=== PATIENT | female | born 1960 | race Hispanic/Latino ===

== ENCOUNTER 2019-02-28 15:38 | Emergency (ER) | payer SELFPAY ==
--- NOTE | 2019-02-28 16:17 | RAD REPORT ---
EXAM DESCRIPTION: CT - Head Brain Wo Cont - 02/28/2019 4:11 pm CLINICAL HISTORY: Hypertension, headache COMPARISON: CT head November 2015 TECHNIQUE: Axial 5 mm thick images of the head were obtained without IV contrast. All CT scans are performed using dose optimization technique as appropriate and may include automated exposure control or mA/KV adjustment according to patient size. FINDINGS: No intracranial hemorrhage, mass, edema or shift of mid-line structures. No acute infarcti on changes seen. No abnormal extra-axial fluid collections. Ventricles are normal. Mastoid air cells and visualized portions of the paranasal sinuses are clear. No acute bony findings. No significant change from comparison. IMPRESSION: Negative non-contrast CT head examination.
--- NOTE | 2019-02-28 16:29 | EDPHYS ---
Physician Documentation [facility] Name: Bety Zepeda Age: 58 yrs Sex: Female : 1960 Arrival Date: 02/28/2019 Time: 15:39 Bed 16 Private MD: ED Physician Andrew Parish HPI: 02/28 16:04 This 58 yrs old Female presents to ER via Ambulatory with complaints of Ear snw Pain, High Blood Pressure. 16:04 The patient presents with pain, that is acute. The complaints affect the left ear. snw Onset: The symptoms/episode began/occurred suddenly, just prior to arrival. Modifying factors: The symptoms are alleviated by nothing. Associated signs and symptoms: Pertinent positives: HTN, lightheadedness. Severity of symptoms: At their worst the symptoms were moderate. The patient has experienced similar episodes in the past, a few times, over the past 1-2 weeks. The patient has not recently seen a physician. Pt has not taken HTN medications in years. Historical: - Allergies: 15:46 No Known Allergies; aj - Home Meds: 15:46 None [Active]; aj - PMHx: 15:46 Hypertension; aj - PSHx: 15:46 Cholecystectomy; aj - Immunization history:: Adult Immunizations up to date. - Social history:: Smoking status: Patient uses tobacco products, smokes one-half pack cigarettes per day. - Ebola Screening: : Patient negative for fever greater than or equal to 101.5 degrees Fahrenheit, and additional compatible Ebola Virus Disease symptoms Patient denies exposure to infectious person Patient denies travel to an Ebola-affected area in the 21 days before illness onset No symptoms or risks identified at this time. ROS: 16:03 Constitutional: Negative for fever, chills, and weight loss, Eyes: Negative for injury, snw pain, redness, and discharge, Neck: Negative for injury, pain, and swelling, Cardiovascular: Negative for chest pain, palpitations, and edema, Respiratory: Negative for shortness of breath, cough, wheezing, and pleuritic chest pain, Abdomen/GI: Negative for abdominal pain, nausea, vomiting, diarrhea, and constipation, Back: Negative for injury and pain, : Negative for injury, bleeding, discharge, and swelling, MS/Extremity: Negative for injury and deformity, Skin: Negative for injury, rash, and discoloration. 16:03 ENT: Positive for ear pain, of the left ear. 16:03 Neuro: Positive for dizziness. Exam: 16:03 Constitutional: This is a well developed, well nourished patient who is awake, alert, snw and in no acute distress. Head/Face: Normocephalic, atraumatic. Eyes: Pupils equal round and reactive to light, extra-ocular motions intact. Lids and lashes normal. Conjunctiva and sclera are non-icteric and not injected. Cornea within normal limits. Periorbital areas with no swelling, redness, or edema. ENT: Nares patent. No nasal discharge, no septal abnormalities noted. Tympanic membranes are normal and external auditory canals are clear. Oropharynx with no redness, swelling, or masses, exudates, or evidence of obstruction, uvula midline. Mucous membranes moist. Neck: Trachea midline, no thyromegaly or masses palpated, and no cervical lymphadenopathy. Supple, full range of motion without nuchal rigidity, or vertebral point tenderness. No Meningismus. Chest/axilla: Normal chest wall appearance and motion. Nontender with no deformity. No lesions are appreciated. Cardiovascular: Regular rate and rhythm with a normal S1 and S2. No gallops, murmurs, or rubs. Normal PMI, no JVD. No pulse deficits. Respiratory: Lungs have equal breath sounds bilaterally, clear to auscultation and percussion. No rales, rhonchi or wheezes noted. No increased work of breathing, no retractions or nasal flaring. Abdomen/GI: Soft, non-tender, with normal bowel sounds. No distension or tympany. No guarding or rebound. No evidence of tenderness throughout. Back: No spinal tenderness. No costovertebral tenderness. Full range of motion. Skin: Warm, dry with normal turgor. Normal color with no rashes, no lesions, and no evidence of cellulitis. MS/ Extremity: Pulses equal, no cyanosis. Neurovascular intact. Full, normal range of motion. Neuro: Awake and alert, GCS 15, oriented to person, place, time, and situation. Cranial nerves II-XII grossly intact. Motor strength 5/5 in all extremities. Sensory grossly intact. Cerebellar exam normal. Normal gait. Psych: Awake, alert, with orientation to person, place and time. Behavior, mood, and affect are within normal limits. Vital Signs: 15:46 BP 162 / 100; Pulse 82; Resp 16; Temp 98.2; Pulse Ox 98% on R/A; Weight 76.66 kg; aj Height 5 ft. 0 in. (152.40 cm); 16:49 BP 156 / 102; Pulse 70; Resp 17; Temp 98.5(TE); Pulse Ox 96% on R/A; mh5 17:35 BP 153 / 105; Pulse 67; Resp 17; Temp 98.2(O); Pulse Ox 99% on R/A; Pain 7/10; rb1 15:46 Body Mass Index 33.01 (76.66 kg, 152.40 cm) aj MDM: 16:03 Patient medically screened. snw 16:29 Data reviewed: vital signs, nurses notes. Data interpreted: Pulse oximetry: on room air snw is 98 %. Interpretation: normal. Counseling: I had a detailed discussion with the patient and/or guardian regarding: the historical points, exam findings, and any diagnostic results supporting the discharge/admit diagnosis, the presence of at least one elevated blood pressure reading (>120/80) during this emergency department visit, radiology results, the need for outpatient follow up, to return to the emergency department if symptoms worsen or persist or if there are any questions or concerns that arise at home. Special discussion: Based on the history and exam findings, there is no indication for further emergent testing or inpatient evaluation. I discussed with the patient/guardian the need to see the primary care provider for further evaluation of the symptoms. 02/28 15:58 Order name: CT Head Brain wo Cont; Complete Time: 16:27 snw 02/28 16:00 Order name: FSBS; Complete Time: 16:50 snw Administered Medications: 16:45 Drug: Metoprolol 25 mg {Note: BP 148/102 P 74.} Route: PO; rb1 17:15 Follow up: Response: No adverse reaction rb1 Point of Care Testing: Blood Glucose: 16:47 Blood Glucose: 117 mg/dL; mh5 Ranges: Critical Glucose Levels:Adult <50 mg/dl or >400 mg/dl <40 mg/dl or >180 mg/dl Disposition: 03/01 06:22 Co-signature as Attending Physician, Andrew Parish MD I agree with the assessment and kdr plan of care. Disposition: 02/28/19 16:28 Discharged to Home. Impression: Essential (primary) hypertension, Otalgia, left ear. - Condition is Stable. - Discharge Instructions: Hypertension, Heart Disease Prevention, How to Take Your Blood Pressure, [id number], DASH Eating Plan, Rehydration, Adult, Managing Your Hypertension, Form - Blood Pressure Record Sheet. - Prescriptions for Metoprolol Tartrate 25 mg Oral Tablet - take 1 tablet by ORAL route 2 times per day with a meal; 20 tablet. - Medication Reconciliation Form, Thank You Letter, Antibiotic Education, Prescription Opioid Use form. - Follow up: Emergency Department; When: As needed; Reason: Worsening of condition. Follow up: Private Physician; When: 1 week; Reason: Recheck today's complaints, Continuance of care, Re-evaluation by your physician. Signatures: Dispatcher [employer] EDShelby Chance RN RN Andrew Cordoba MD MD kdr Therrien, Shelly, COLOR BUFFER-C COLOR BUFFER-Csnw Rosetta Lowery, RN RN rb1 Corrections: (The following items were deleted from the chart) 02/28 17:44 16:28 02/28/2019 16:28 Discharged to Home. Impression: Essential (primary) rb1 hypertension; Otalgia, left ear. Condition is Stable. Forms are Medication Reconciliation Form, Thank You Letter, Antibiotic Education, Prescription Opioid Use. Follow up: Emergency Department; When: As needed; Reason: Worsening of condition. Follow up: Private Physician; When: 1 week; Reason: Recheck today's complaints, Continuance of care, Re-evaluation by your physician. snw
--- NOTE | 2019-02-28 16:29 | ER ---
Nurse's Notes [facility] Name: Bety Zepeda Age: 58 yrs Sex: Female : 1960 Arrival Date: 02/28/2019 Time: 15:39 Bed 16 Private MD: Diagnosis: Essential (primary) hypertension;Otalgia, left ear Presentation: 02/28 15:44 Presenting complaint: Patient states: High blood pressure, headache, blurry vision, and aj left ear pain intermittently for 3-4 days. Patient reportedly stopped her HTN medications due to recall but did not contact provider for new RX. Transition of care: patient was not received from another setting of care. Onset of symptoms was February 24, 2019. Risk Assessment: Do you want to hurt yourself or someone else? Patient reports no desire to harm self or others. Initial Sepsis Screen: Does the patient meet any 2 criteria? No. Patient's initial sepsis screen is negative. Does the patient have a suspected source of infection? No. Patient's initial sepsis screen is negative. Care prior to arrival: None. 15:44 Method Of Arrival: Ambulatory 15:44 Acuity: BALWINDER 3 aj Triage Assessment: 15:46 General: Appears in no apparent distress. comfortable, Behavior is calm, cooperative, aj appropriate for age. Pain: Complains of pain in scalp and left ear. EENT: Reports pain in left ear. Neuro: Level of Consciousness is awake, alert, obeys commands, Oriented to person, place, time, situation, Appropriate for age Reports headache. Respiratory: Airway is patent Trachea midline Respiratory effort is even, unlabored, Respiratory pattern is regular, symmetrical. Derm: Skin is intact, is healthy with good turgor, Skin is pink, warm \T\ dry. normal. Historical: - Allergies: 15:46 No Known Allergies; aj - Home Meds: 15:46 None [Active]; aj - PMHx: 15:46 Hypertension; aj - PSHx: 15:46 Cholecystectomy; aj - Immunization history:: Adult Immunizations up to date. - Social history:: Smoking status: Patient uses tobacco products, smokes one-half pack cigarettes per day. - Ebola Screening: : Patient negative for fever greater than or equal to 101.5 degrees Fahrenheit, and additional compatible Ebola Virus Disease symptoms Patient denies exposure to infectious person Patient denies travel to an Ebola-affected area in the 21 days before illness onset No symptoms or risks identified at this time. Screenin:00 Abuse screen: Denies threats or abuse. Nutritional screening: No deficits noted. rb1 Tuberculosis screening: No symptoms or risk factors identified. Fall Risk None identified. Assessment: 16:00 General: Appears uncomfortable, Behavior is calm, cooperative, Denies fever. Pain: rb1 Complains of pain in left ear and left side of head Pain currently is 9 out of 10 on a pain scale. Neuro: Level of Consciousness is awake, alert, obeys commands, Oriented to person, place, time, situation, Reports blurred vision. Cardiovascular: Capillary refill < 3 seconds is brisk in bilateral fingers. Respiratory: Airway is patent Respiratory effort is even, unlabored, Respiratory pattern is regular, symmetrical. GI: Reports nausea. : No signs and/or symptoms were reported regarding the genitourinary system. EENT: Reports pain in left ear. Derm: Skin is pink, warm \T\ dry. Musculoskeletal: Range of motion: intact in all extremities. 16:00 General: Pt. was on Hydrochlorothiazide 25 mg but has stopped taking that medication. rb1 16:01 General: Appears in no apparent distress. uncomfortable. ae4 16:37 Reassessment: Discharge is pending until directed by provider to discharge the pt. rb1 17:35 Reassessment: Patient appears in no apparent distress at this time. No changes from rb1 previously documented assessment. Vital Signs: 15:46 BP 162 / 100; Pulse 82; Resp 16; Temp 98.2; Pulse Ox 98% on R/A; Weight 76.66 kg; aj Height 5 ft. 0 in. (152.40 cm); 16:49 BP 156 / 102; Pulse 70; Resp 17; Temp 98.5(TE); Pulse Ox 96% on R/A; mh5 17:35 BP 153 / 105; Pulse 67; Resp 17; Temp 98.2(O); Pulse Ox 99% on R/A; Pain 7/10; rb1 15:46 Body Mass Index 33.01 (76.66 kg, 152.40 cm) aj ED Course: 15:39 Patient arrived in ED. as 15:45 Triage completed. aj 15:46 Arm band placed on left wrist. Patient placed in an exam room. aj 15:49 Min, Kymberly, PHYSIOLOGY TEACHER-C is [facility]. sn 15:49 Andrew Parish MD is Attending Physician. [facility] 15:56 Rosetta Lowery, RN is Primary Nurse. rb1 16:00 Patient has correct armband on for positive identification. Bed in low position. Call rb1 light in reach. Side rails up X 1. Pulse ox on. NIBP on. 16:13 CT Head Brain wo Cont In Process Unspecified. EDMS 17:42 No provider procedures requiring assistance completed. Patient did not have IV access rb1 during this emergency room visit. Administered Medications: 16:45 Drug: Metoprolol 25 mg {Note: BP 148/102 P 74.} Route: PO; rb1 17:15 Follow up: Response: No adverse reaction rb1 Point of Care Testing: Blood Glucose: 16:47 Blood Glucose: 117 mg/dL; mh5 Ranges: Outcome: 16:28 Discharge ordered by MD. snw 17:42 Discharged to home ambulatory, with family. rb1 17:42 Condition: stable 17:42 Discharge instructions given to patient, Instructed on discharge instructions, follow up and referral plans. medication usage, Demonstrated understanding of instructions, follow-up care, medications, Prescriptions given X 1. 17:42 Patient left the ED. rb1 Signatures: Dispatcher [employer] Shelby Chacon RN RN Kymberly Torres FNP-C PHYSIOLOGY TEACHER-[facility] Heaven Jurado as Rosetta Lowery, RN RN [facility] Karla Jurado [facility] Bobo Elkins RN RN ae4 Corrections: (The following items were deleted from the chart) 17:45 17:44 Patient left the ED. rb1 rb1
[2019-02-28] MEDS ORDERED: METOPROLOL TAR 25 MG TAB ONE (16:59)
[2019-02-28 17:58] VITALS: BP 153/105; TEMP 98.2; O2SAT 99
== END 2019-02-28 17:44 | disposition home or self-care (01) ==
LOC: ER 15:38
DX: H92.02 Otalgia, left ear (principal); I10 Essential (primary) hypertension; F17.210 Nicotine dependence, cigarettes, uncomplicated
CPT/HCPCS: 70450; 82962; 99284

== ENCOUNTER 2019-08-28 13:31 | Emergency (ER) | payer SELFPAY ==
[2019-08-28 14:19] LABS: Urine Blood NEGATIVE (NEG); Urine Glucose NEGATIVE (NEG); Urine Protein NEGATIVE (NEG)
[2019-08-28 14:44] LABS: Absolute Lymphocytes (CBC) 1.6 K/uL (0.7-4.9); Basophils % 0.4 % (0-1.3); Hematocrit 38.4 % (36.0-45.0); Lymphocytes % 26.9 % (15.3-44.8); MPV 8.2 fL (7.6-11.3); RBC Red Blood Cell Count 4.39 M/uL (3.86-4.86)
[2019-08-28 14:47] LABS: Protime INR 0.98
[2019-08-28 15:01] LABS: ALT/SGPT 25 U/L (12-78); AST/SGOT 22 U/L (15-37); Albumin 3.8 g/dL (3.4-5.0); Alkaline Phosphatase 117 U/L (45-117); BUN Blood Urea Nitrogen 12 mg/dL (7-18); Bicarbonate 28 mmol/L (21-32); Bilirubin Direct 0.2 mg/dL (0-0.2); Bilirubin Total 0.4 mg/dL (0.2-1.0); Glucose Level 91 mg/dL (74-106); Magnesium 2.1 mg/dL (1.8-2.4); NT PRO-BNP 142 pg/mL (<125); Potassium 3.9 mmol/L (3.5-5.1); Protein, Total 7.6 g/dL (6.4-8.2); Sodium Level 139 mmol/L (136-145); Troponin (Emerg Dept Use Only) < 0.02 ng/mL (0.0-0.045)
--- NOTE | 2019-08-28 15:09 | RAD REPORT ---
EXAM DESCRIPTION: Andrew Single View08/28/2019 2:56 pm CLINICAL HISTORY: Chest pain COMPARISON: 2016 FINDINGS: The lungs appear clear of acute infiltrate. The heart is mildly to moderately enlarged. T he aorta is tortuous/ectatic IMPRESSION: No acute abnormalities displayed
--- NOTE | 2019-08-28 15:16 | RAD REPORT ---
EXAM DESCRIPTION: CT - Head Brain Wo Cont - 08/28/2019 3:02 pm CLINICAL HISTORY: Headache COMPARISON: February 2019 TECHNIQUE: Computed axial tomography of the head was obtained. IV contrast was not requested. All CT scans are performed using dose optimization technique as appropriate and may include automated exposure control or mA/KV adjustment according to patient size. FINDINGS: An intracranial bleed is not seen . The ventricles are normal in caliber. No extra-axial fluid collection is noted. . Fluid within the sinuses/ mastoids is not seen. IMPRESSION: No acute intracranial abnormality is seen. If patient's symptoms persist MRI of the bra in would be recommended.
[2019-08-28] MEDS ORDERED: HYDRALAZINE HCL 20 MG/ML VIAL ONE (15:47)
[2019-08-28] MEDS ORDERED: KETOROLAC 30 MG/ML INJ ONE (15:48)
[2019-08-28] MEDS ORDERED: ACETAMINOPHEN 325 MG TABLET ONE (17:08)
--- NOTE | 2019-08-28 18:43 | ER ---
Nurse's Notes [facility] Name: Bety Zepeda Age: 58 yrs Sex: Female : 1960 Arrival Date: 08/28/2019 Time: 13:33 Bed 27 Private MD: Diagnosis: Hypertension secondary to other renal disorders;Headache Presentation: 08/28 13:49 Presenting complaint: Patient states: headache, chest pain and near syncopal episode ss that began while at work 1 hour ago. Pt's BP was taken at work 183/117 and 157/105. Pt states she was told in the ER that she had high blood pressure, but never followed up with PCP. Transition of care: patient was not received from another setting of care. Onset of symptoms was August 28, 2019. Risk Assessment: Do you want to hurt yourself or someone else? Patient reports no desire to harm self or others. Initial Sepsis Screen: Does the patient meet any 2 criteria? No. Patient's initial sepsis screen is negative. Does the patient have a suspected source of infection? No. Patient's initial sepsis screen is negative. Care prior to arrival: see triage note. 13:49 Method Of Arrival: Ambulatory ss 13:49 Acuity: BALWINDER 2 ss Triage Assessment: 13:58 General: Appears in no apparent distress. ls4 13:58 Pain: Complains of pain in top of head, forehead, right yarsanism, left yarsanism and right ls4 occipital area Pain currently is 9 out of 10 on a pain scale. Quality of pain is described as aching, pressure. Cardiovascular: Reports chest pain, fatigue, lightheadedness, nausea, Denies shortness of breath, syncope, vomiting, Heart tones S1 S2 Pulses are 2+ in right radial artery and left radial artery Rhythm is sinus arrythmia. Respiratory: Airway is patent Respiratory effort is even, unlabored, Respiratory pattern is regular, Breath sounds are clear bilaterally. GI: No deficits noted. : No deficits noted. Musculoskeletal: No deficits noted. 14:38 General: Behavior is calm, cooperative. ls4 Historical: - Allergies: 13:52 No Known Allergies; ss - Home Meds: 13:52 None [Active]; ss - PMHx: 13:52 Hypertension; ss - PSHx: 13:52 Cholecystectomy; ss - Immunization history:: Adult Immunizations up to date. - Social history:: Smoking status: Patient reports the use of cigarette tobacco products, denies chronic smoking, but will smoke occasionally. - Ebola Screening: : Patient denies exposure to infectious person Patient denies travel to an Ebola-affected area in the 21 days before illness onset. Screenin:36 Abuse screen: Denies threats or abuse. Denies injuries from another. Nutritional ls4 screening: No deficits noted. Tuberculosis screening: No symptoms or risk factors identified. Fall Risk None identified. Assessment: 16:25 Reassessment: Patient appears in no apparent distress at this time. Patient and/or ls4 family updated on plan of care and expected duration. Pain level reassessed. Patient is alert, oriented x 3, equal unlabored respirations, skin warm/dry/pink. Patient states symptoms have improved. 16:45 Pain: Complains of pain in right occipital area and left yarsanism and right yarsanism and ls4 forehead and top of head Pain does not radiate. Quality of pain is described as aching, sharp, Pain began suddenly, 4 hours ago. 19:34 General: Appears in no apparent distress. comfortable, Behavior is calm, cooperative, ca1 appropriate for age. Pain: Denies pain. Neuro: Level of Consciousness is awake, alert, obeys commands. Cardiovascular: Denies chest pain. Respiratory: Airway is patent. GI: Abdomen is round non-distended. : No signs and/or symptoms were reported regarding the genitourinary system. Derm: Skin is intact, is healthy with good turgor. Vital Signs: 13:52 BP 156 / 116; Pulse 87; Resp 16; Temp 98.3(O); Pulse Ox 98% on R/A; Weight 74.84 kg; ss Height 5 ft. 0 in. (152.40 cm); Pain 9/10; 14:39 BP 149 / 102; Pulse 80; Resp 22; Temp 98.3; Pulse Ox 97% on R/A; Pain 9/10; ls4 15:30 BP 140 / 92; Pulse 92; Resp 14; Pulse Ox 99% ; Pain 9/10; ls4 16:30 BP 137 / 95; Pulse 85; Resp 16; Pulse Ox 99% on R/A; Pain 8/10; ls4 18:05 BP 138 / 97; Pulse 82; Resp 14; Temp 98.5; Pulse Ox 100% on R/A; Pain 3/10; ls4 19:15 BP 130 / 70; Pulse 88; Resp 18; Temp 98; Pulse Ox 98% ; Pain 0/10; ca1 13:52 Body Mass Index 32.22 (74.84 kg, 152.40 cm) ED Course: 13:33 Patient arrived in ED. ds1 13:51 Triage completed. ss 13:52 Arm band placed on left wrist. ss 13:56 Jason Bell MD is Attending Physician. tw4 14:00 Patient has correct armband on for positive identification. Placed in gown. Bed in low ls4 position. Call light in reach. Side rails up X2. quality assurance monitor on. Pulse ox on. NIBP on. 14:10 EKG completed in triage. Results shown to MD. ls4 14:10 No provider procedures requiring assistance completed. Initial lab(s) drawn, by me, ls4 sent to lab. Urine collected: clean catch specimen, clear, EKG done, by ED staff, reviewed by Jason Bell MD. Inserted saline lock: 20 gauge in right antecubital area, using aseptic technique. Blood collected. Patient maintains SpO2 saturation greater than 95% on room air. 14:18 Alena Maldonado, RN is Primary Nurse. ls4 14:56 XRAY Chest (1 view) In Process Unspecified. EDMS 15:03 CT Head Brain wo Cont In Process Unspecified. EDMS 19:34 IV discontinued, intact, bleeding controlled, No redness/swelling at site. Pressure ca1 dressing applied. Administered Medications: 15:52 Drug: TORadol 30 mg Route: IVP; Site: right antecubital; ls4 16:20 Follow up: Response: No adverse reaction; No change in condition ls4 16:25 Follow up: Response: No adverse reaction; Marked relief of symptoms; Pain is decreased ls4 15:52 Drug: hydrALAZINE 10 mg Route: IV; Rate: bolus; Site: right antecubital; ls4 16:20 Follow up: Response: No adverse reaction; Blood pressure is lowered ls4 17:15 Drug: Tylenol 1000 mg Route: PO; ls4 18:04 Follow up: Response: No adverse reaction; Pain is decreased ls4 Outcome: 18:42 Discharge ordered by . tw4 19:33 Discharged to home ambulatory. ca1 19:33 Condition: good 19:33 Discharge instructions given to patient, family, Instructed on discharge instructions, follow up and referral plans. medication usage, Demonstrated understanding of instructions, follow-up care, medications. 19:36 Patient left the ED. ca1 Signatures: Dispatcher [employer] EDAR Heather Spear ds1 Ayah Camargo RN RN Jason Amador MD MD tw4 Alena Maldonado RN RN ls4 Winsome Florence RN RN ca1 Corrections: (The following items were deleted from the chart) 18:53 18:05 BP 138 / 97; Pulse 82bpm; Resp 14bpm; Pulse Ox 100% RA; Pain 3/10; ls4 ls4
--- NOTE | 2019-08-28 18:43 | EDPHYS ---
Physician Documentation [facility] Name: Bety Zepeda Age: 58 yrs Sex: Female : 1960 Arrival Date: 08/28/2019 Time: 13:33 Bed 27 Private MD: ED Physician Jason Bell HPI: 08/28 17:17 This 58 yrs old Female presents to ER via Ambulatory with complaints of Chest tw4 Pain, High Blood Pressure. 17:17 The patient has elevated blood pressure and discovered this during work physical. tw4 Onset: The symptoms/episode began/occurred today. Modifying factors: The symptoms are aggravated by. Associated signs and symptoms: Pertinent positives: chest pain, headache, lightheadedness, nausea. Severity of symptoms: At its worst the blood pressure was moderate. The patient has not experienced similar symptoms in the past. Historical: - Allergies: 13:52 No Known Allergies; ss - Home Meds: 13:52 None [Active]; ss - PMHx: 13:52 Hypertension; ss - PSHx: 13:52 Cholecystectomy; ss - Immunization history:: Adult Immunizations up to date. - Social history:: Smoking status: Patient reports the use of cigarette tobacco products, denies chronic smoking, but will smoke occasionally. - Ebola Screening: : Patient denies exposure to infectious person Patient denies travel to an Ebola-affected area in the 21 days before illness onset. ROS: 17:17 Constitutional: Negative for fever, chills, and weight loss, Eyes: Negative for injury, tw4 pain, redness, and discharge, Cardiovascular: Negative for chest pain, palpitations, and edema, Respiratory: Negative for shortness of breath, cough, wheezing, and pleuritic chest pain, Abdomen/GI: Negative for abdominal pain, nausea, vomiting, diarrhea, and constipation, Back: Negative for injury and pain, MS/Extremity: Negative for injury and deformity, Skin: Negative for injury, rash, and discoloration. Exam: 17:17 Constitutional: This is a well developed, well nourished patient who is awake, alert, tw4 and in no acute distress. Head/Face: Normocephalic, atraumatic. Chest/axilla: Normal chest wall appearance and motion. Nontender with no deformity. No lesions are appreciated. Cardiovascular: Regular rate and rhythm with a normal S1 and S2. No gallops, murmurs, or rubs. Normal PMI, no JVD. No pulse deficits. Respiratory: Lungs have equal breath sounds bilaterally, clear to auscultation and percussion. No rales, rhonchi or wheezes noted. No increased work of breathing, no retractions or nasal flaring. Abdomen/GI: Soft, non-tender, with normal bowel sounds. No distension or tympany. No guarding or rebound. No evidence of tenderness throughout. Back: No spinal tenderness. No costovertebral tenderness. Full range of motion. MS/ Extremity: Pulses equal, no cyanosis. Neurovascular intact. Full, normal range of motion. Neuro: Awake and alert, GCS 15, oriented to person, place, time, and situation. Cranial nerves II-XII grossly intact. Motor strength 5/5 in all extremities. Sensory grossly intact. Cerebellar exam normal. Normal gait. Vital Signs: 13:52 BP 156 / 116; Pulse 87; Resp 16; Temp 98.3(O); Pulse Ox 98% on R/A; Weight 74.84 kg; ss Height 5 ft. 0 in. (152.40 cm); Pain 9/10; 14:39 BP 149 / 102; Pulse 80; Resp 22; Temp 98.3; Pulse Ox 97% on R/A; Pain 9/10; ls4 15:30 BP 140 / 92; Pulse 92; Resp 14; Pulse Ox 99% ; Pain 9/10; ls4 16:30 BP 137 / 95; Pulse 85; Resp 16; Pulse Ox 99% on R/A; Pain 8/10; ls4 18:05 BP 138 / 97; Pulse 82; Resp 14; Temp 98.5; Pulse Ox 100% on R/A; Pain 3/10; ls4 19:15 BP 130 / 70; Pulse 88; Resp 18; Temp 98; Pulse Ox 98% ; Pain 0/10; ca1 13:52 Body Mass Index 32.22 (74.84 kg, 152.40 cm) ss MDM: 13:56 Patient medically screened. tw4 18:46 Differential diagnosis: hypertensive crisis, Malignant HTN. Data reviewed: vital signs, tw4 nurses notes. Data interpreted: Pulse oximetry: Interpretation: normal. Test interpretation: by ED physician or midlevel provider: ECG, plain radiologic studies. Counseling: I had a detailed discussion with the patient and/or guardian regarding: the historical points, exam findings, and any diagnostic results supporting the discharge/admit diagnosis, lab results, radiology results. Medication response: Toradol partially relieved the patient's pain. Response to treatment: and as a result, I will discharge patient. Special discussion: Based on the patient's history, exam, and Dx evaluation, there is no indication for emergent intervention or inpatient Tx. It is understood by the patient/guardian that if the Sx's persist or worsen they need to return immediately for re-evaluation. I discussed with the patient/guardian in detail that at this point there is no indication for admission to the hospital. It is understood, however, that if the symptoms persist or worsen the patient needs to return immediately for re-evaluation. 08/28 13:56 Order name: Basic Metabolic Panel; Complete Time: 15:26 08/28 15:26 Interpretation: Normal except: GFR 89. 08/28 13:56 Order name: CBC with Diff; Complete Time: 15:26 08/28 15:26 Interpretation: Normal except: MCV 87.6. 08/28 13:56 Order name: LFT's; Complete Time: 15:26 08/28 15:26 Interpretation: Normal except: GLOB 3.8; A/G 1.0. 08/28 13:56 Order name: Magnesium; Complete Time: 15:26 08/28 15:26 Interpretation: Within normal limits: MG 2.1. 08/28 13:56 Order name: NT PRO-BNP; Complete Time: 15:26 08/28 15:26 Interpretation: Abnormal: NT PRO-BNP 142. 08/28 13:56 Order name: PT-INR; Complete Time: 15:26 08/28 15:26 Interpretation: Within normal limits: PT 11.6. 08/28 13:56 Order name: Troponin (emerg Dept Use Only); Complete Time: 15:26 08/28 15:26 Interpretation: Within normal limits: TROPED < 0.02. 08/28 13:56 Order name: XRAY Chest (1 view); Complete Time: 15:26 08/28 15:26 Interpretation: No acute disease. 08/28 14:07 Order name: Urine Dipstick--Ancillary (enter results); Complete Time: 15:26 08/28 14:43 Order name: CT Head Brain wo Cont; Complete Time: 15:26 [facility] 08/28 15:27 Interpretation: No acute disease. 08/28 18:15 Order name: Influenza Screen (a \T\ B) [facility] 08/28 13:56 Order name: EKG; Complete Time: 13:58 08/28 13:56 Order name: Cardiac monitoring; Complete Time: 14:17 08/28 13:56 Order name: EKG - Nurse/Tech; Complete Time: 14:17 08/28 13:56 Order name: IV Saline Lock; Complete Time: 14:34 08/28 13:56 Order name: Labs collected and sent; Complete Time: 14:34 08/28 13:56 Order name: O2 Per Protocol; Complete Time: 14:17 08/28 13:56 Order name: O2 Sat Monitoring; Complete Time: 14:17 tw4 EC:46 Rate is 81 beats/min. Rhythm is regular. QRS [place] is Normal. [place] interval is normal. QRS tw4 interval is normal. QT interval is normal. No Q waves. T waves are Normal. No ST changes noted. Clinical impression: NSR w/ Non-specific ST/T Changes. Interpreted by me. Reviewed by me. Administered Medications: 15:52 Drug: TORadol 30 mg Route: IVP; Site: right antecubital; ls4 16:20 Follow up: Response: No adverse reaction; No change in condition ls4 16:25 Follow up: Response: No adverse reaction; Marked relief of symptoms; Pain is decreased ls4 15:52 Drug: hydrALAZINE 10 mg Route: IV; Rate: bolus; Site: right antecubital; ls4 16:20 Follow up: Response: No adverse reaction; Blood pressure is lowered ls4 17:15 Drug: Tylenol 1000 mg Route: PO; ls4 18:04 Follow up: Response: No adverse reaction; Pain is decreased ls4 Disposition: 08/28/19 18:42 Discharged to Home. Impression: Hypertension secondary to other renal disorders, Headache. - Condition is Stable. - Discharge Instructions: General Headache Without Cause, Migraine Headache, Dental Work and . - Prescriptions for Fiorinal 50- 325-40 mg Oral Capsule - take 1 capsule by ORAL route every 4 hours As needed - not to exceed 6 capsules per day; 20 capsule. Ibuprofen 800 mg Oral Tablet - take 1 tablet by ORAL route every 8 hours As needed take with food; 30 tablet. Zofran 4 mg Oral Tablet - take 1 tablet by ORAL route every 12 hours As needed; 6 tablet. - Medication Reconciliation Form, Thank You Letter, Antibiotic Education, Prescription Opioid Use, Work release form form. - Follow up: Private Physician; When: Upon discharge from the Emergency Department; Reason: Recheck today's complaints, Continuance of care, Re-evaluation by your physician. - Problem is new. - Symptoms have improved. Signatures: Dispatcher [employer] EDLA Ayah Camargo, RN RN Jason Amador MD MD tw4 Alena Maldonado RN RN ls4 Winsome Florence RN RN ca1 Corrections: (The following items were deleted from the chart) 19:36 18:42 08/28/2019 18:42 Discharged to Home. Impression: Hypertension secondary to other ca1 renal disorders; Headache. Condition is Stable. Forms are Medication Reconciliation Form, Thank You Letter, Antibiotic Education, Prescription Opioid Use. Follow up: Private Physician; When: Upon discharge from the Emergency Department; Reason: Recheck today's complaints, Continuance of care, Re-evaluation by your physician. Problem is new. Symptoms have improved. tw4
[2019-08-28 23:28] VITALS: BP 130/70; TEMP 98; O2SAT 98
--- NOTE | 2019-08-29 11:26 | EKG ---
Test Date: 2019-08-28 Test Time: 14:10:32 Orthotic And Prosthetic Technician: JANELLE MEASUREMENT RESULTS: Intervals: Rate: 81 DC: 168 QRSD: 90 QT: 378 QTc: 439 [place]: P: DC: 168 QRS: 201 T: 190 INTERPRETIVE STATEMENTS: Normal sinus rhythm Right superior axis deviation ST & T wave abnormality, consider inferior ischemia Abnormal ECG Compared to ECG 11/11/2015 00:05:53 Right superior axis now present ST (T wave) deviation now present Possible ischemia now present Left ventricular hypertrophy no longer present Electronically Signed On 08-29-19 11:24:00 BOMB TECHNICIAN by Syed Mas
== END 2019-08-28 19:36 | disposition home or self-care (01) ==
LOC: ER 13:31
DX: I10 Essential (primary) hypertension (principal); R51 Headache; Z72.0 Tobacco use
CPT/HCPCS: 36415; 70450; 71045; 80048; 80076; 81003; 83735; 83880; 84484; 85025; 85610; 87804; 93005; 96374; 96375; 99285; J0360

== ENCOUNTER 2020-04-30 14:16 | Emergency (ER) | payer SELFPAY ==
--- NOTE | 2020-04-30 16:05 | ER ---
Nurse's Notes [facility] Name: Bety Zepeda Age: 59 yrs Sex: Female : 1960 Arrival Date: 04/30/2020 Time: 14:20 Bed Waiting Private MD: Diagnosis: Presentation: 04/30 14:25 Chief complaint: Patient states: right knee pain that radiates up and down knee for 2 em months, denies trauma. Coronavirus screen: Client denies travel out of the [place] in the last 14 days. Ebola Screen: Patient negative for fever greater than or equal to 101.5 degrees Fahrenheit, and additional compatible Ebola Virus Disease symptoms Patient denies exposure to infectious person. Patient denies travel to an Ebola-affected area in the 21 days before illness onset. No symptoms or risks identified at this time. Initial Sepsis Screen: Does the patient meet any 2 criteria? No. Patient's initial sepsis screen is negative. Does the patient have a suspected source of infection? No. Patient's initial sepsis screen is negative. Risk Assessment: Do you want to hurt yourself or someone else? Patient reports no desire to harm self or others. Onset of symptoms was February 2020. 14:25 Method Of Arrival: Ambulatory em 14:25 Acuity: BALWINDER 4 em Historical: - Allergies: 14:28 No Known Allergies; em - PMHx: 14:28 Hypertension; em - PSHx: 14:28 Cholecystectomy; em - Immunization history:: Adult Immunizations up to date. - Social history:: Smoking status: Patient reports the use of cigarette tobacco products, denies chronic smoking, but will smoke occasionally. Vital Signs: 14:25 BP 155 / 101; Pulse 80; Resp 18; Temp 98.5; Pulse Ox 98% on R/A; Weight 71.67 kg; em Height 5 ft. 0 in. (152.40 cm); Pain 6/10; 14:25 Body Mass Index 30.86 (71.67 kg, 152.40 cm) em ED Course: 14:20 Patient arrived in ED. mr 14:27 Triage completed. em 14:28 Arm band placed on. em 15:48 Trudy Mckeon FNP-C [facility]. kb 15:48 William Barnes MD is Attending Physician. kb 15:54 Patient's name was called from XI ibarra. No response. hb Administered Medications: No medications were administered Outcome: 16:04 Patient left the ED. hb Signatures: Trudy Mckeon FNP-C FNP-Brittany RichaChe Phil Lai, RN RN em Danica Khan RN RN hb Corrections: (The following items were deleted from the chart) 14:55 14:25 BP 155 / 101; Pulse 80bpm; Resp 97bpm; Pulse Ox 98% RA; Temp 98.5F; 71.67 kg; em Height 5 ft. 0 in.; BMI: 30.8; Pain 6/10; em
[2020-04-30 16:26] VITALS: BP 155/101; TEMP 98.5; O2SAT 98
== END 2020-04-30 16:04 | disposition left against medical advice (07) ==
LOC: ER 14:16
DX: Z53.21 Procedure and treatment not carried out due to patient leaving prior to being seen by health care provider (principal)
CPT/HCPCS: 99281

== ENCOUNTER 2020-10-20 09:25 | Emergency (ER) | payer SELFPAY ==
--- OUTSIDE RECORDS SUMMARY | 2020-10-20 09:28 | XMS REPORT | Continuity of Care Document ---
:1960 Author Organization [facility] t Address [address] [place] [address] Care Team Providers Name Role Phone Kate Amaro Attending Clinician Problems This patient has no known problems. Allergies, Adverse Reactions, Alerts This patient has no known allergies or adverse reactions. Medications This patient has no known medications. Procedures This patient has no known procedures. Encounters Start End Encounter Admission Attending Care Care Encounter Source Date/Time Date/Time Type Type Clinicians Facility Department ID 2020-05-01 2020-05-01 Emergency Efraín Morris [facility] [id number] 11:25:00 12:46:00 Kate Winslow [id number] [place] [id number] [place] [id number] Results This patient has no known results.
--- NOTE | 2020-10-20 11:17 | EDPHYS ---
Physician Documentation [facility] Name: Bety Zepeda Age: 60 yrs Sex: Female : 1960 Arrival Date: 10/20/2020 Time: 09:29 Bed 23 Private MD: ED Physician Juan Manuel Flores HPI: 10/20 11:08 This 60 yrs old Female presents to ER via Unassigned with complaints of Hand alivia Pain. 11:08 The patient or guardian reports decreased range of motion, pain. The complaints affect ailvia the right hand diffusely. Context: The problem was sustained at an unknown location. Onset: The symptoms/episode began/occurred 1 week(s) ago. Modifying factors: The symptoms are alleviated by holding still, splinting, the symptoms are aggravated by movement, dependent position. Associated signs and symptoms: The patient has no apparent associated signs or symptoms. Severity of symptoms: At their worst the symptoms were moderate, in the emergency department the symptoms are unchanged. The patient has not experienced similar symptoms in the past. - Family history:: not pertinent. ROS: 11:08 Constitutional: Negative for fever, chills, and weight loss, Eyes: Negative for injury, alivia pain, redness, and discharge, ENT: Negative for injury, pain, and discharge, Neck: Negative for injury, pain, and swelling, Cardiovascular: Negative for chest pain, palpitations, and edema, Respiratory: Negative for shortness of breath, cough, wheezing, and pleuritic chest pain, Abdomen/GI: Negative for abdominal pain, nausea, vomiting, diarrhea, and constipation, Back: Negative for injury and pain, : Negative for injury, bleeding, discharge, and swelling, Skin: Negative for injury, rash, and discoloration, Neuro: Negative for headache, weakness, numbness, tingling, and seizure, Psych: Negative for depression, anxiety, suicide ideation, homicidal ideation, and hallucinations, Allergy/Immunology: Negative for hives, rash, and allergies, Endocrine: Negative for neck swelling, polydipsia, polyuria, polyphagia, and marked weight changes, Hematologic/Lymphatic: Negative for swollen nodes, abnormal bleeding, and unusual bruising. 11:08 MS/extremity: Positive for decreased range of motion, pain, tenderness, of the lateral aspect of right hand, right thumb, dorsal aspect of distal phalanx of right thumb, dorsal aspect of distal phalanx of right index finger, dorsal aspect of middle phalanx of right index finger, dorsal aspect of proximal phalanx of right index finger, dorsal aspect of middle phalanx of right middle finger, dorsal aspect of proximal phalanx of right middle finger, dorsal aspect of middle phalanx of right ring finger, dorsal aspect of proximal phalanx of right ring finger, right middle fingernail and right ring fingernail. Exam: 11:08 Constitutional: This is a well developed, well nourished patient who is awake, alert, alivia and in no acute distress. Head/Face: Normocephalic, atraumatic. Eyes: Pupils equal round and reactive to light, extra-ocular motions intact. Lids and lashes normal. Conjunctiva and sclera are non-icteric and not injected. Cornea within normal limits. Periorbital areas with no swelling, redness, or edema. ENT: Nares patent. No nasal discharge, no septal abnormalities noted. Tympanic membranes are normal and external auditory canals are clear. Oropharynx with no redness, swelling, or masses, exudates, or evidence of obstruction, uvula midline. Mucous membranes moist. Neck: Trachea midline, no thyromegaly or masses palpated, and no cervical lymphadenopathy. Supple, full range of motion without nuchal rigidity, or vertebral point tenderness. No Meningismus. Chest/axilla: Normal chest wall appearance and motion. Nontender with no deformity. No lesions are appreciated. Cardiovascular: Regular rate and rhythm with a normal S1 and S2. No gallops, murmurs, or rubs. Normal PMI, no JVD. No pulse deficits. Respiratory: Lungs have equal breath sounds bilaterally, clear to auscultation and percussion. No rales, rhonchi or wheezes noted. No increased work of breathing, no retractions or nasal flaring. Abdomen/GI: Soft, non-tender, with normal bowel sounds. No distension or tympany. No guarding or rebound. No evidence of tenderness throughout. Back: No spinal tenderness. No costovertebral tenderness. Full range of motion. Skin: Warm, dry with normal turgor. Normal color with no rashes, no lesions, and no evidence of cellulitis. Neuro: Awake and alert, GCS 15, oriented to person, place, time, and situation. Cranial nerves II-XII grossly intact. Motor strength 5/5 in all extremities. Sensory grossly intact. Cerebellar exam normal. Normal gait. Psych: Awake, alert, with orientation to person, place and time. Behavior, mood, and affect are within normal limits. 11:08 Musculoskeletal/extremity: Extremities: grossly normal except: noted in the lateral aspect of right hand, right thumb, dorsal aspect of distal phalanx of right thumb, dorsal aspect of proximal phalanx of right thumb, dorsal aspect of distal phalanx of right index finger, dorsal aspect of middle phalanx of right index finger, dorsal aspect of proximal phalanx of right index finger, dorsal aspect of middle phalanx of right middle finger, dorsal aspect of proximal phalanx of right middle finger, dorsal aspect of middle phalanx of right ring finger, dorsal aspect of proximal phalanx of right ring finger, palmar aspect of distal phalanx of right ring finger, palmar aspect of middle phalanx of right ring finger, palmar aspect of proximal phalanx of right ring finger, palmar aspect of distal phalanx of right middle finger, palmar aspect of middle phalanx of right middle finger, palmar aspect of proximal phalanx of right middle finger, palmar aspect of distal phalanx of right index finger, palmar aspect of middle phalanx of right index finger, palmar aspect of proxima; phalanx of right index finger, palmar aspect of distal phalanx of right thumb, palmar aspect of proximal phalanx of right thumb, right middle fingernail and right ring fingernail: decreased ROM, pain, ROM: limited active range of motion due to pain, limited passive range of motion due to pain, Circulation is intact in all extremities. Sensation intact. Compartment Syndrome exam of affected extremity: is normal. 11:19 ECG was reviewed by the Attending Physician. alivia MDM: 10:05 Patient medically screened. alivia 11:08 Differential diagnosis: closed fracture, tendonitis. Data reviewed: vital signs, nurses alivia notes, EKG, radiologic studies, plain films. Data interpreted: load out person: rate is 90 beats/min, Pulse oximetry: on room air is 96 %. Test interpretation: by ED physician or midlevel provider: ECG, plain radiologic studies. Counseling: I had a detailed discussion with the patient and/or guardian regarding: the historical points, exam findings, and any diagnostic results supporting the discharge/admit diagnosis, radiology results. 10/20 11:00 Order name: Hand Right 3 View [facility] 10/20 10:25 Order name: EKG; Complete Time: 10:26 [facility] 10/20 10:25 Order name: EKG - Nurse/Tech; Complete Time: 11:09 [facility] 10/20 10:59 Order name: Splint - Wrist: velcro/cock up; Complete Time: 11:27 alivia EC:19 Rate is 90 beats/min. Rhythm is regular. QRS [place] is Normal. [place] interval is normal. QRS alivia interval is normal. QT interval is normal. No Q waves. T waves are Normal. No ST changes noted. Clinical impression: NSR w/ Non-specific ST/T Changes, LVH, and No evidence of ischemia. Interpreted by me. Reviewed by me. Administered Medications: 11:13 Drug: [place] (7.5 mg-325 mg) 1 tabs Route: PO; dm5 11:13 Drug: predniSONE 40 mg Route: PO; dm5 Disposition: 10/20/20 11:17 Discharged to Home. Impression: Carpal tunnel syndrome, right upper limb. - Condition is Stable. - Discharge Instructions: Carpal Tunnel Syndrome, Wrist Splint, Wrist Splint, [id number], Peripheral Neuropathy. - Prescriptions for Ibuprofen 600 mg Oral Tablet - take 1 tablet by ORAL route every 6 hours As needed take with food; 20 tablet. Tylenol- Codeine #3 300-30 mg Oral Tablet - take 2 tablets by ORAL route every 4-6 hours As needed; 20 tablet. Medrol (Adalberto) 4 mg Oral Tablets, Dose Pack - take 1 tablet by ORAL route as directed - follow package instructions; 1 packet. - Work release form, Medication Reconciliation Form, Thank You Letter, Antibiotic Education, Prescription Opioid Use form. - Follow up: Private Physician; When: 2 - 3 days; Reason: Recheck today's complaints, Continuance of care, Re-evaluation by your physician. Follow up: Dimas James MD; When: 2 - 3 days; Reason: Recheck today's complaints, Continuance of care, Re-evaluation by your physician. - Problem is new. - Symptoms have improved. Signatures: Dispatcher [facility] Julia Tang, RN RN dm5 Juan Manuel Flores MD MD cha Corrections: (The following items were deleted from the chart) 11:00 10:26 Hand Left 3 View+RAD.RAD.BRZ ordered. [facility] EDMS 11:34 11:17 10/20/2020 11:17 Discharged to Home. Impression: Carpal tunnel syndrome, right dm5 upper limb. Condition is Stable. Forms are Medication Reconciliation Form, Thank You Letter, Antibiotic Education, Prescription Opioid Use. Follow up: Private Physician; When: 2 - 3 days; Reason: Recheck today's complaints, Continuance of care, Re-evaluation by your physician. Follow up: Dimas James; When: 2 - 3 days; Reason: Recheck today's complaints, Continuance of care, Re-evaluation by your physician. Problem is new. Symptoms have improved. alivia
--- NOTE | 2020-10-20 11:17 | ER ---
Nurse's Notes [facility] Name: Bety Zepeda Age: 60 yrs Sex: Female : 1960 Arrival Date: 10/20/2020 Time: 09:29 Bed 23 Private MD: Diagnosis: Carpal tunnel syndrome, right upper limb Presentation: 10/20 09:31 Acuity: BALWINDER 4 dm5 - Family history:: not pertinent. ED Course: 09:29 Patient arrived in ED. mr 09:31 Triage completed. dm5 10:05 Juan Manuel Flores MD is Attending Physician. [facility] 10:41 Julia Tang, RN is Primary Nurse. dm5 11:11 Hand Right 3 View In Process Unspecified. EDMS 11:16 EKG done, by ED staff, reviewed by Juan Manuel Flores MD. 5 11:16 Patient has correct armband on for positive identification. Placed in gown. Bed in low mh5 position. Call light in reach. Side rails up X 1. Warm blanket given. Pulse ox on. NIBP on. 11:17 Dimas James MD is Referral Physician. [facility] Administered Medications: 11:13 Drug: [place] (7.5 mg-325 mg) 1 tabs Route: PO; dm5 11:13 Drug: predniSONE 40 mg Route: PO; dm5 Outcome: 11:17 Discharge ordered by . [facility] 11:34 Patient left the ED. dm5 Signatures: Dispatcher [employer] EDMS Julia Tang, Juan Manuel Meza RN, MD MD cha Rivera, Che Karla Jurado [facility]
--- NOTE | 2020-10-20 11:18 | RAD REPORT ---
EXAM DESCRIPTION: RAD - Hand Right 3 View - 10/20/2020 11:10 am CLINICAL HISTORY: PAIN, no trauma history or precipitating event detailed COMPARISON: No comparisonsNone. FINDINGS: No fracture is identified. There is no dislocation or periosteal reaction noted. No forei gn body or significant soft tissue abnormality. Mild IP joint degenerative change. Mild degenerative change at the trapezial first metacarpal articulation. IMPRESSION: Negative right hand examination for fracture or other acute finding.
[2020-10-20] MEDS ORDERED: HYDROCODONE/APAP 7.5/325 MG TAB ONE (11:28)
[2020-10-20] MEDS ORDERED: predniSONE 20 MG TAB ONE (11:28)
== END 2020-10-20 11:34 | disposition home or self-care (01) ==
LOC: ER 09:25
DX: G56.01 Carpal tunnel syndrome, right upper limb (principal)
CPT/HCPCS: 93005; 99284; J7512

== ENCOUNTER 2020-11-01 05:31 | Emergency (ER) | payer SELFPAY ==
--- OUTSIDE RECORDS SUMMARY | 2020-11-01 05:34 | XMS REPORT | Continuity of Care Document ---
:1960 Author Organization [facility] t Address [address] [place] [address] Care Team Providers Name Role Phone Kate [...] Department ID 2020-05-01 2020-05-01 Emergency Efraín Morris [facility] [id number] 11:25:00 12:46:00 Kate Winslow [id number] [place] [id number] [place] [id number] Results This patient has no known results.
[2020-11-01] MEDS ORDERED: DIPHENHYDRAMINE 50 MG/ML VIAL ONE (06:29)
[2020-11-01] MEDS ORDERED: METOCLOPRAMIDE 10 MG/2mL INJ ONE (06:29)
[2020-11-01] MEDS ORDERED: KETOROLAC 30 MG/ML INJ ONE (06:29)
[2020-11-01] MEDS ORDERED: NA CHLORIDE 0.9% 1,000 ML ONE (06:29)
[2020-11-01 06:49] LABS: ALT/SGPT 30 U/L (12-78); AST/SGOT 14 U/L (15-37); Albumin 3.5 g/dL (3.4-5.0); Alkaline Phosphatase 92 U/L (45-117); BUN Blood Urea Nitrogen 17 mg/dL (7-18); Bicarbonate 29 mmol/L (21-32); Bilirubin Total 0.7 mg/dL (0.2-1.0); Glucose Level 114 mg/dL (74-106); Potassium 3.8 mmol/L (3.5-5.1); Protein, Total 7.1 g/dL (6.4-8.2); Sodium Level 139 mmol/L (136-145)
[2020-11-01 06:53] LABS: Basophils % 0.5 % (0-1.3); Hematocrit 35.9 % (36.0-45.0); Lymphocytes % 35.5 % (15.3-44.8); MPV 8.2 fL (7.6-11.3)
--- NOTE | 2020-11-01 08:30 | RAD REPORT ---
EXAM DESCRIPTION: RAD - Chest Single View - 11/01/2020 6:49 am CLINICAL HISTORY: CHEST PAIN Chest pain. COMPARISON: Chest Single View dated 08/28/2019; Chest Single View dated 11/10/2015; CHEST SINGLE VIEW d ated 10/10/2015; CHEST SINGLE VIEW dated 10/25/2013 FINDINGS: Portable technique limits examination quality. The lungs are grossly clear. The heart is mildly enlarged in size. No displaced fractures. IMPRESSION: No acute intrathoracic process suspected.
--- NOTE | 2020-11-01 09:29 | EDPHYS ---
Physician Documentation [facility] Name: Bety Zepeda Age: 60 yrs Sex: Female : 1960 Arrival Date: 11/01/2020 Time: 05:34 Bed 7 Private MD: ED Physician Andrew Parish HPI: 11/01 06:36 This 60 yrs old Female presents to ER via Ambulatory with complaints of ma2 Headache. 06:36 The patient complains of pain to the forehead. Onset: The symptoms/episode ma2 began/occurred gradually, 2 day(s) ago. Severity of symptoms: At its worst the pain was moderate, in the emergency department the pain is unchanged. The patient has not experienced similar symptoms in the past. Historical: - Allergies: 05:54 No Known Allergies; bb - Home Meds: 05:54 Ibuprofen Oral [Active]; acetaminophen-codeine 300-30 mg Oral tab 1 tab every 6 hours bb [Active]; medrol dose pack [Active]; - PMHx: 05:54 Hypertension; bb - PSHx: 05:54 None; bb - Immunization history:: Adult Immunizations up to date. - Social history:: Smoking status: Patient/guardian denies using tobacco, Stopped _ months ago 1.5 Patient/guardian denies using alcohol, street drugs, Patient/guardian denies using IV drugs, The patient lives with family. - Family history:: not pertinent. ROS: 06:36 Constitutional: Negative for fever, chills, and weight loss. ma2 06:36 All other systems are negative. Exam: 06:36 Constitutional: This is a well developed, well nourished patient who is awake, alert, ma2 and in no acute distress. Head/Face: Normocephalic, atraumatic. Eyes: Pupils equal round and reactive to light, extra-ocular motions intact. Lids and lashes normal. Conjunctiva and sclera are non-icteric and not injected. Cornea within normal limits. Periorbital areas with no swelling, redness, or edema. ENT: Nares patent. No nasal discharge, no septal abnormalities noted. Tympanic membranes are normal and external auditory canals are clear. Oropharynx with no redness, swelling, or masses, exudates, or evidence of obstruction, uvula midline. Mucous membranes moist. Neck: Trachea midline, no thyromegaly or masses palpated, and no cervical lymphadenopathy. Supple, full range of motion without nuchal rigidity, or vertebral point tenderness. No Meningismus. Chest/axilla: Normal chest wall appearance and motion. Nontender with no deformity. No lesions are appreciated. Cardiovascular: Regular rate and rhythm with a normal S1 and S2. No gallops, murmurs, or rubs. Normal PMI, no JVD. No pulse deficits. Respiratory: Lungs have equal breath sounds bilaterally, clear to auscultation and percussion. No rales, rhonchi or wheezes noted. No increased work of breathing, no retractions or nasal flaring. Abdomen/GI: Soft, non-tender, with normal bowel sounds. No distension or tympany. No guarding or rebound. No evidence of tenderness throughout. MS/ Extremity: Pulses equal, no cyanosis. Neurovascular intact. Full, normal range of motion. Neuro: Awake and alert, GCS 15, oriented to person, place, time, and situation. Cranial nerves II-XII grossly intact. Motor strength 5/5 in all extremities. Sensory grossly intact. Cerebellar exam normal. Normal gait. Vital Signs: 05:47 BP 163 / 109; Pulse 72; Resp 18 S; Temp 98.6(O); Pulse Ox 95% on R/A; Weight 72.57 kg bb (R); Height 5 ft. 0 in. (152.40 cm) (R); Pain 7/10; 07:29 BP 171 / 99; Pulse 60; Resp 17; Pulse Ox 97% on R/A; tw2 08:51 BP 141 / 100; Pulse 60; Resp 17; Pulse Ox 96% on R/A; tw2 05:47 Body Mass Index 31.25 (72.57 kg, 152.40 cm) bb [place] Coma Score: 06:36 Eye Response: spontaneous(4). Verbal Response: oriented(5). Motor Response: obeys ma2 commands(6). Total: 15. MDM: 05:50 Patient medically screened. ma2 06:36 Differential diagnosis: cluster headache, sinusitis, tension headache, vasomotor ma2 headache. 17:58 Data reviewed: vital signs, nurses notes, lab test result(s), EKG, radiologic studies. kdr Counseling: I had a detailed discussion with the patient and/or guardian regarding: the historical points, exam findings, and any diagnostic results supporting the discharge/admit diagnosis, lab results, radiology results, the need for outpatient follow up. 11/01 06:08 Order name: CBC with Diff; Complete Time: 07:01 [facility] 11/01 06:08 Order name: CMP; Complete Time: 07:01 [facility] 11/01 06:25 Order name: Troponin (emerg Dept Use Only) [facility] 11/01 06:26 Order name: Troponin (Emerg Dept Use Only); Complete Time: 07:17 EDMS 11/01 06:39 Order name: COVID-19 : Document "Date of Symptom Onset" if Symptomatic. [facility] 11/01 06:25 Order name: Chest Single View XRAY; Complete Time: 08:42 [facility] 11/01 06:25 Order name: CT Head Brain wo Cont ma2 Administered Medications: 06:27 Drug: NS 0.9% 1000 ml Route: IV; Rate: 1 bolus; Site: right antecubital; ea 08:50 Follow up: Response: No adverse reaction; IV Status: Completed infusion; IV Intake: tw2 1000ml 06:27 Drug: Reglan 20 mg Route: IVP; Site: right antecubital; ea 08:50 Follow up: Response: No adverse reaction tw2 06:27 Drug: TORadol 30 mg Route: IVP; Site: right antecubital; ea 08:50 Follow up: Response: No adverse reaction; Pain is decreased tw2 06:27 Drug: Benadryl 25 mg Route: IVP; Site: right antecubital; ea 08:50 Follow up: Response: No adverse reaction tw2 Disposition: 11/01/20 09:28 Discharged to Home. Impression: Headache, Hypertensive heart disease, Dyspnea. - Condition is Stable. - Discharge Instructions: Hypertension, [id number], General Headache Without Cause, Migraine Headache, [id number]. - Prescriptions for Lisinopril 20 mg Oral Tablet - take 1 tablet by ORAL route once daily; 20 tablet. Albuterol Sulfate 90 mcg/actuation - inhale 1-2 puff by INHALATION route every 4-6 hours; 1 Inhaler. Pepcid 20 mg Oral Tablet - take 1 tablet by ORAL route once daily; 20 tablet. - Medication Reconciliation Form, Thank You Letter, Work release form form. - Follow up: Private Physician; When: Tomorrow; Reason: If symptoms return. - Notes: SEE YOUR PCP FOR MANAGEMENT OF HYPERTENSION Signatures: Dispatcher [employer] EDAndrew Poon MD MD kdr Patricia Koehler RN RN bb Nikky Meehan RN RN tw2 Nelia Hilario RN RN ea Doreen Cates MD MD ma2 Corrections: (The following items were deleted from the chart) 09:43 09:28 11/01/2020 09:28 Discharged to Home. Impression: Headache; Hypertensive heart tw2 disease; Dyspnea. Condition is Stable. Discharge Instructions: General Headache Without Cause, Hypertension, Migraine Headache, [id number]. Prescriptions for Reglan 10 mg Oral Tablet - take 1 tablet by ORAL route every 6 hours . take 30 minutes before meals and at bedtime; 100 tablet, Diclofenac Sodium 75 mg Oral Tablet Sustained Release - take 1 tablet by ORAL route 2 times per day; 30 tablet. and Forms are Work release form, Medication Reconciliation Form, Thank You Letter, Antibiotic Education, Prescription Opioid Use. Follow up: Private Physician; When: Tomorrow; Reason: If symptoms return. kdr
--- NOTE | 2020-11-01 09:29 | ER ---
Nurse's Notes [facility] Name: Bety Zepeda Age: 60 yrs Sex: Female : 1960 Arrival Date: 11/01/2020 Time: 05:34 Bed 7 Private MD: Diagnosis: Headache;Hypertensive heart disease;Dyspnea Presentation: 11/01 05:47 Chief complaint: Patient states: she has had a headache with SOB and nausea since bb yesterday the headache is intermittent but feels like "a shooter". Coronavirus screen: Client reports previous positive COVID test result. 4 to 5 months ago. Ebola Screen: No symptoms or risks identified at this time. Initial Sepsis Screen: Does the patient meet any 2 criteria? No. Patient's initial sepsis screen is negative. Does the patient have a suspected source of infection? No. Patient's initial sepsis screen is negative. Risk Assessment: Do you want to hurt yourself or someone else? Patient reports no desire to harm self or others. Onset of symptoms was October 31, 2020. 05:47 Method Of Arrival: Ambulatory 05:47 Acuity: BALWINDER 3 bb Historical: - Allergies: 05:54 No Known Allergies; bb - Home Meds: 05:54 Ibuprofen Oral [Active]; acetaminophen-codeine 300-30 mg Oral tab 1 tab every 6 hours bb [Active]; medrol dose pack [Active]; - PMHx: 05:54 Hypertension; bb - PSHx: 05:54 None; bb - Immunization history:: Adult Immunizations up to date. - Social history:: Smoking status: Patient/guardian denies using tobacco, Stopped _ months ago 1.5 Patient/guardian denies using alcohol, street drugs, Patient/guardian denies using IV drugs, The patient lives with family. - Family history:: not pertinent. Screenin:38 Abuse screen: Denies threats or abuse. Nutritional screening: No deficits noted. ea Tuberculosis screening: No symptoms or risk factors identified. Fall Risk None identified. Assessment: 06:28 General: Appears uncomfortable, Behavior is calm, cooperative, appropriate for age. ea Pain: Complains of pain in face. Neuro: Level of Consciousness is awake, alert, obeys commands, Oriented to person, place, time, situation. Cardiovascular: Patient's skin is warm and dry. Respiratory: Airway is patent Respiratory effort is even, unlabored, Respiratory pattern is regular, symmetrical. Derm: Skin is pink, warm \\T\\ dry. 07:04 Reassessment: Patient and/or family updated on plan of care and expected duration. Pain ea level reassessed. Patient is alert, oriented x 3, equal unlabored respirations, skin warm/dry/pink. Returned from CT. 08:51 Reassessment: Patient appears in no apparent distress at this time. Patient and/or tw2 family updated on plan of care and expected duration. Pain level reassessed. Patient is alert, oriented x 3, equal unlabored respirations, skin warm/dry/pink. Patient states feeling better. Patient states symptoms have improved. 09:41 Reassessment: Patient appears in no apparent distress at this time. Patient and/or tw2 family updated on plan of care and expected duration. Pain level reassessed. Patient is alert, oriented x 3, equal unlabored respirations, skin warm/dry/pink. 09:42 Reassessment: Patient states feeling better. tw2 Vital Signs: 05:47 BP 163 / 109; Pulse 72; Resp 18 S; Temp 98.6(O); Pulse Ox 95% on R/A; Weight 72.57 kg bb (R); Height 5 ft. 0 in. (152.40 cm) (R); Pain 7/10; 07:29 BP 171 / 99; Pulse 60; Resp 17; Pulse Ox 97% on R/A; tw2 08:51 BP 141 / 100; Pulse 60; Resp 17; Pulse Ox 96% on R/A; tw2 05:47 Body Mass Index 31.25 (72.57 kg, 152.40 cm) [place] Coma Score: 06:36 Eye Response: spontaneous(4). Verbal Response: oriented(5). Motor Response: obeys ma2 commands(6). Total: 15. ED Course: 05:34 Patient arrived in ED. ag3 05:38 Nelia Hilario, FORREST is Primary Nurse. ea 05:50 Doreen Cates MD is Attending Physician. ma2 05:51 Triage completed. bb 05:54 Arm band placed on Patient placed in an exam room, on a stretcher, on pulse oximetry. bb 06:28 Patient has correct armband on for positive identification. Bed in low position. Call ea light in reach. Side rails up X2. 06:28 Inserted saline lock: 20 gauge in right antecubital area, using aseptic technique. ea Blood collected. 06:49 Chest Single View XRAY In Process Unspecified. EDMS 06:51 CT Head Brain wo Cont In Process Unspecified. EDMS 07:13 Primary Nurse role handed off by Nelia Hilario RN tw2 07:13 Nikky Meehan RN is Primary Nurse. tw2 07:17 Attending Physician role handed off by Doreen Cates MD [facility] 07:17 Andrew Parish MD is Attending Physician. kdr 09:42 No provider procedures requiring assistance completed. IV discontinued, intact, tw2 bleeding controlled, No redness/swelling at site. Pressure dressing applied. Administered Medications: 06:27 Drug: NS 0.9% 1000 ml Route: IV; Rate: 1 bolus; Site: right antecubital; ea 08:50 Follow up: Response: No adverse reaction; IV Status: Completed infusion; IV Intake: tw2 1000ml 06:27 Drug: Reglan 20 mg Route: IVP; Site: right antecubital; ea 08:50 Follow up: Response: No adverse reaction tw2 06:27 Drug: TORadol 30 mg Route: IVP; Site: right antecubital; ea 08:50 Follow up: Response: No adverse reaction; Pain is decreased tw2 06:27 Drug: Benadryl 25 mg Route: IVP; Site: right antecubital; ea 08:50 Follow up: Response: No adverse reaction tw2 Intake: 08:50 IV: 1000ml; Total: 1000ml. tw2 Outcome: 09:28 Discharge ordered by . kdr 09:42 Discharged to home ambulatory. tw2 09:42 Condition: stable 09:42 Discharge instructions given to patient, Instructed on discharge instructions, follow up and referral plans. no drinking with medication, no driving heavy equipment, medication usage, Demonstrated understanding of instructions, follow-up care, medications, Prescriptions given X 3. 09:43 Patient left the ED. tw2 Signatures: Dispatcher [employer] EDMS Andrew Parish MD MD kdr Ballard, Brenda, RN RN bb Wise, Tara, RN RN tw2 Nelia Hilario RN RN ea Alzahri, Mohammad, MD MD ma2 Chasity Burdick ag3
[2020-11-01 10:00] VITALS: TEMP 98.6
[2020-11-01 10:01] VITALS: BP 141/100; O2SAT 96
--- NOTE | 2020-11-01 22:33 | RAD REPORT ---
EXAM DESCRIPTION: CT Head Without Intravenous Contrast CLINICAL HISTORY: The patient is 60 years old and is Female; HEADACHE TECHNIQUE: Axial computed tomography images of the head/brain without intravenous contrast. Sagitt al and coronal reformatted images were created and reviewed. This CT exam was performed using one o r more of the following dose reduction techniques: automated exposure control, adjustment of the mA and/or kV according to patient size, and/or use of iterative reconstruction technique. COMPARISON: CT head 08/28/2019. FINDINGS: Brain: Mild nonspecific white matter changes likely related to chronic microvascular isc hemic disease. No hemorrhage. Ventricles: Unremarkable. No ventriculomegaly. Bones/joints: Unremarkable. No acute fracture. Soft tissues: Unremarkable. Sinuses: Unremarkable as visualized. Mastoid air cells: Unremarkable as visualized. No mastoid effusion. IMPRESSION: No acute findings in the head/brain. Electronically signed by: Brady Martinez MD 11/01/2020 6:59 AM CDT Due to temporary technical issues with the PACS/Fluency reporting system, reports are being signed by the in house radiologists without review as a courtesy to insure prompt reporting. The interpreting radiologist is fully responsible for the content of the report.
== END 2020-11-01 09:43 | disposition home or self-care (01) ==
LOC: ER 05:31
DX: R51.9 Headache, unspecified (principal); I11.9 Hypertensive heart disease without heart failure; Z87.891 Personal history of nicotine dependence; R06.00 Dyspnea, unspecified; Z20.822 Contact with and (suspected) exposure to COVID-19
CPT/HCPCS: 36415; 70450; 71045; 80053; 84484; 85025; 96361; 96374; 96375; 99284; J1200; J2765; J7030

== ENCOUNTER 2022-09-01 10:50 | Emergency (ER) | payer SELFPAY ==
--- OUTSIDE RECORDS SUMMARY | 2022-09-01 10:52 | XMS REPORT | Continuity of Care Document ---
:1960 Author Organization [facility] t Address [address] [place] [address] Care Team Providers Name Role Phone Efraín Amaro Attending Clinician Problems Condition Condition Condition Status Onset Resolution Last Treating Co mments Source Name Details Category Date Date Treatment Clinician Date Contracept Contracept Disease Active U nivers lucho lucho 4-22 [facility] [place] management [place] [facility] Tubal Tubal Disease Active Univers ligation ligation 10-05 ity of status status 00:00: [address] Intramural Intramural Disease Active Overview : Univers leiomyoma leiomyoma 10-05 Diagnosed i ty of of uterus of uterus 00:00: at ER. [facility] s 00 Records [facility] Branch Essential Essential Disease Active Uni vers hypertensi hypertensi 10-05 it y of on, benign [place], benign [place]: [place] [facility] [place] Tobacco Tobacco Disease Active Univers use use 10-05 ity of disorder disorder 00:00: [address] Heavy Heavy Disease Active Univers menses menses 10-05 ity of 00:00: [address] Allergies, Adverse Reactions, Alerts Allergy Allergy Status Severity Reaction(s) Onset Inactive Treating Comm ents Source Name Type Date Date Clinician NO KNOWN Drug Active Univers ALLERGIE Class ity of [facility] Social History Social Habit Start Date Stop Date Quantity Comments Source Sex Assigned At [facility] y of [facility] Exposure to Yes University of SARS-CoV-2 [place] [facility] (event) Branch Tobacco use and 2015-11-29 2015-11-29 Never used Universit y of exposure 00:00:00 00:00:00 [facility] Alcohol intake 2015-11-29 2015-11-29 Current University of 00:00:00 00:00:00 non-drinker of [facility] alcohol (finding) Branch History of 2014-11-23 Cigarette Smoker [facility] of tobacco use 00:00:00 [facility] Tobacco Comment 2014-10-04 2014-10-04 smokes 3 x per Unive rsity of 00:00:00 00:00:[address] [facility] Smoking Status Start Date Stop Date Source Former smoker 2015-11-29 00:00:00 2015-11-29 00:00:00 [facility] Medications Ordered Filled Start Stop Current Ordering Indication Dosage Frequency Signature Comments Components Source Medication Medication Date Date Medication? Clinician (SIG) Name Name ibuprofen 2020 No 600mg 600 mg, Uni vers (IBU) 05-01 Oral, ity of tablet 600 17:30: 17:39 ONCE, 1 Stefano as mg 00 :00 dose, Wed Medical 05/01/20 at Branch 1230, [place] naproxen Yes [id number] 500mg Take 1 Univers (NAPROSYN) 05-01 9100 tablet by ity of 500 mg 00:00: mouth 2 [place] tablet 00 (two) Medical times Branch daily with meals. hydrochloro Yes [id number] 25mg Take 1 Univers thiazide 4-22 tablet by ity of (ESIDRIX) 00:00: mouth [place] 25 mg 00 daily. Medical tablet Branch Immunizations Ordered Filled Immunization Date Status Comments Sourc e Immunization Name Name TDAP 2014-10-04 Completed University of 00:00:00 [facility] Vital Signs Vital Name Observation Time Observation Value Comments Source Systolic blood 2020-05-01 16:21:00 169 mm[Hg] Univer sity of pressure [facility] Diastolic blood 2020-05-01 16:21:00 117 mm[Hg] Unive rsity of pressure [facility] Heart rate 2020-05-01 16:21:00 90 /min [facility] Body temperature 2020-05-01 16:21:[address] [facility] rate 2020-05-01 16:21:00 16 /min [facility] ersity of [facility] Body weight 2020-05-01 16:21:00 71.668 kg Universi [facility] BMI 2020-05-01 16:21:00 31.64 kg/m2 Universi [facility] Oxygen saturation in 2020-05-01 16:21:00 96 /min University of Arterial blood by [facility] Pulse oximetry Branch Systolic blood 2020-05-01 16:21:00 169 mm[Hg] Univer sity of pressure [facility] Diastolic blood 2020-05-01 16:21:00 117 mm[Hg] Unive rsity of pressure [facility] Heart rate 2020-05-01 16:21:00 90 /min [facility] Body temperature 2020-05-01 16:21:[address] [facility] Respiratory rate 2020-05-01 16:21:00 16 /min [facility] Body weight 2020-05-01 16:21:00 71.668 kg Universi [facility] BMI 2020-05-01 16:21:00 31.64 kg/m2 Universi [facility] Oxygen saturation in 2020-05-01 16:21:00 96 /min University of Arterial blood by [facility] Pulse oximetry Branch Procedures Procedure Date / Time Performed Performing Clinician Sourc e XR KNEE <3 VW RIGHT 2020-05-01 16:59:18 Efraín Morris [facility] CONSENT/REFUSAL FOR 2020-05-01 16:08:08 Doctor Unassigned, No Un [facility] DIAGNOSIS AND Name [facility] TREATMENT Encounters Start End Encounter Admission Attending Care Care Encounter Source Date/Time Date/Time Type Type Clinicians Facility Department ID 2020-05-01 2020-05-01 Emergency Efraín Morris [facility] [id number] 11:25:00 12:46:00 Kate Winslow [id number] [place] [id number] [place] [id number] 2020-05-01 2020-05-01 Emergency Efraín Morris [facility] [id number] [facility] 11:25:00 12:46:00 Kate Winslow [id number] i ty of [place] [id number] [facility] [id number] [facility] 084 Branch 2020-05-01 2020-05-01 Emergency X [facility] ERT [id number] [facility] 11:08:00 11:08:[address] [facility] Results Test Description Test Time Test Results Result Source Comments Comments XR KNEE <3 VW 2020-04-10 HISTORY: ?Pain. Univer sity of RIGHT 3 FINDINGS: AP, lateral, [place] [facility] 17:08:03 oblique views of right Br anch knee showed no acute fractureor dislocation. Minimal joint effusion noted associated with mildtricompartment degenerative arthritis, slightly more affecting medial kneejoint space with slightly narrowed medial knee joint space, osteophytesalong the articular edges of all the bones. CONCLUSIONS: Mild tricompartment degenerative osteoarthritis of right knee. [facility], [facility]iant Results Inft User - 05/01/2020 12:09 PM CDTHISTORY: Pain.FINDINGS: AP, lateral, oblique views of right knee showed no acute fractureor dislocation. Minimal joint effusion noted associated with mildtricompartment degenerative arthritis, slightly more affecting medial kneejoint space with slightly narrowed medial knee joint space, osteophytesalong the articular edges of all the bones.CONCLUSIONS: Mild tricompartment degenerative osteoarthritis of right knee.
[2022-09-01 11:34] LABS: Absolute Lymphocytes (CBC) 1.6 K/uL (0.7-4.9); Hematocrit 37.5 % (36.0-45.0); Lymphocytes % 28.5 % (15.3-44.8); MCV 85.7 fL (80-100); MPV 7.9 fL (7.6-11.3); RBC Red Blood Cell Count 4.38 M/uL (3.86-4.86)
[2022-09-01] MEDS ORDERED: ASPIRIN 81 MG CHEWABLE TABLET ONE (11:44)
[2022-09-01 11:52] LABS: Potassium 3.7 mmol/L (3.5-5.1); Troponin High Sensitivity 6.7 pg/mL (<58.9)
--- NOTE | 2022-09-01 13:44 | RAD REPORT ---
EXAM DESCRIPTION: CT - Chest For Pe Angio - 09/01/2022 1:12 pm CLINICAL HISTORY: Chest pain COMPARISON: None. TECHNIQUE: Dynamically enhanced axial 3 mm thick images of the chest were obtained during administra tion of <100> mL Isovue 370 IV contrast. Coronal and oblique reconstruction images were generated and reviewed. Exam utilizes a protocol for optimal evaluation of pulmonary arterial tree. Maximum intensity projections 3D imaging was utilized All CT scans are performed using dose optimization technique as appropriate and may include automated exposure control or mA/KV adjustment according to patient size. FINDINGS: A pulmonary embolus is not seen. Ascending thoracic aorta 4.2 centimeters. Intimal flap lower descending thoracic aorta A pleural effusion is not seen. A pericardial effusion is not seen. Moderate cardiomegaly A lung consolidation is not present. IMPRESSION: Negative for a pulmonary embolism. Intimal flap lower descending thoracic aorta
--- NOTE | 2022-09-01 15:29 | RAD REPORT ---
EXAM DESCRIPTION: Andrew Single View09/01/2022 11:58 am CLINICAL HISTORY: Chest pain COMPARISON: 2020 FINDINGS: The lungs appear clear of acute infiltrate. The heart is moderately enlarged IMPRESSION: No acute abnormalities displayed
--- NOTE | 2022-09-01 16:22 | ER ---
Nurse's Notes [facility] Name: Bety Zepeda Age: 61 yrs Sex: Female : 1960 Arrival Date: 09/01/2022 Time: 10:51 Bed 7 Private MD: Diagnosis: Chest pain, unspecified;Intimal flap descending aorta;Essential (primary) hypertension Presentation: 09/01 11:03 Chief complaint: Patient states: Intermittent, non-radiating left sided chest pain jl7 since 0400 this morning, reports feels sharp and stabbing, reports SOB when the pain hits. Coronavirus screen: Vaccine status: Patient reports being unvaccinated. At this time, the client does not indicate any symptoms associated with coronavirus-19. Ebola Screen: No symptoms or risks identified at this time. Initial Sepsis Screen: Does the patient meet any 2 criteria? No. Patient's initial sepsis screen is negative. Does the patient have a suspected source of infection? No. Patient's initial sepsis screen is negative. Risk Assessment: Do you want to hurt yourself or someone else? Patient reports no desire to harm self or others. Onset of symptoms was September 01, 2022 at 04:00. 11:03 Method Of Arrival: Ambulatory jl7 11:03 Acuity: BALWINDER 2 jl7 Triage Assessment: 11:09 General: Appears in no apparent distress. uncomfortable, Behavior is cooperative, jl7 appropriate for age, anxious. Pain: Complains of pain in anterior aspect of left upper chest Pain currently is 8 out of 10 on a pain scale. Cardiovascular: Patient's skin is warm and dry. Respiratory: Airway is patent Respiratory effort is even, unlabored, Respiratory pattern is regular, symmetrical. Derm: Skin is pink, warm \T\ dry. Historical: - Allergies: 11:09 No Known Allergies; jl7 - Home Meds: 11:09 lisinopril 20 mg Oral tab 1 tab once daily [Active]; atorvastatin 40 mg oral tab 1 tab jl7 once daily [Active]; Pepcid 20 mg Oral tab [Active]; - PMHx: 11:09 Hypertension; Hypercholesterolemia; GERD; jl7 - PSHx: 11:09 Cholecystectomy; jl7 - Immunization history:: Client reports having NOT received the Covid vaccine. - Social history:: Smoking status: Patient denies any tobacco usage or history of. Screenin:49 [facility] ED Fall Risk Assessment (Adult) History of falling in the last 3 months, kr3 including since admission No falls in past 3 months (0 pts) Confusion or Disorientation No (0 pts) Intoxicated or Sedated No (0 pts) Impaired Gait Mobility Assist Device Used No (0 pt) Altered Elimination No (0 pt) Score/Fall Risk Level 0 - 2 = Low Risk. [facility] ED Fall Risk Assessment (Adult) Score/Fall Risk Level 0 - 2 = Low Risk Oriented to surroundings, Maintained a safe environment, Educated pt \T\ family on fall prevention, incl call for assistance when getting out of bed, Assessed \T\ reinforced patient's understanding of fall precautions, Hourly rounding (assess needs \T\ fall precautionary measures) done. Abuse screen: Denies threats or abuse. Nutritional screening: No deficits noted. Tuberculosis screening: No symptoms or risk factors identified. Assessment: 12:33 Reassessment: see triage note. kr3 12:33 Reassessment: Patient appears in no apparent distress at this time. Patient is alert, kr3 oriented x 3, equal unlabored respirations, skin warm/dry/pink. patient states the chest pain is better but there is still a little discomfort. 13:23 Reassessment: Patient appears in no apparent distress at this time. Patient is alert, kr3 oriented x 3, equal unlabored respirations, skin warm/dry/pink. 14:30 Reassessment: Patient appears in no apparent distress at this time. Patient is alert, kr3 oriented x 3, equal unlabored respirations, skin warm/dry/pink. 15:45 Reassessment: Patient appears in no apparent distress at this time. Patient is alert, kr3 oriented x 3, equal unlabored respirations, skin warm/dry/pink. 16:35 Pain: Pain began. kr3 16:35 Pain: Pain does not radiate. kr3 Vital Signs: 11:03 BP 154 / 99; Pulse 98; Resp 20; Temp 98.4; Pulse Ox 100% ; Weight 86.18 kg; Height 5 jl7 ft. 0 in. (152.40 cm); Pain 8/10; 12:34 BP 143 / 104; Pulse 84; Resp 17; Pulse Ox 98% on R/A; kr3 13:24 BP 164 / 101; Pulse 81; Resp 17; Pulse Ox 99% on R/A; kr3 14:45 BP 158 / 110; Pulse 79; Resp 17; Pulse Ox 98% on R/A; kr3 16:34 BP 160 / 107; Pulse 80; Resp 17; Pulse Ox 100% on R/A; kr3 11:03 Body Mass Index 37.11 (86.18 kg, 152.40 cm) jl7 ED Course: 10:51 Patient arrived in ED. rg4 10:56 Sandoval Day DO is Attending Physician. ms3 11:09 Triage completed. jl7 11:09 Arm band placed on right wrist. jl7 11:13 EKG completed in triage. Results shown to MD. jl7 11:27 Basic Metabolic Panel Sent. bc6 11:27 CBC with Diff Sent. bc6 11:27 D-Dimer Sent. bc6 11:27 Magnesium Sent. bc6 11:27 NT PRO-BNP Sent. bc6 11:27 Troponin HS Sent. 6 11:27 Initial lab(s) drawn, by ms, sent to lab. Inserted saline lock: 20 gauge in right bc6 antecubital area, using aseptic technique. 11:30 Client placed on continuous cardiac and pulse oximetry monitoring. NIBP monitoring kr3 applied. 11:30 Bed in low position. Call light in reach. Side rails up X 1. kr3 11:33 Luis Gonzalez, FORREST is Primary Nurse. jl7 12:00 XRAY Chest (1 view) In Process Unspecified. EDMS 12:18 Notified ED physician of a critical lab result(s). D-Dimer 712. kr3 12:47 Primary Nurse role handed off by Luis Gonzalez, FORREST kr3 12:47 Geri Mejia, FORREST is Primary Nurse. kr3 13:13 CT Chest For PE Angio In Process Unspecified. EDMS 16:35 No provider procedures requiring assistance completed. IV discontinued, intact, kr3 bleeding controlled, No redness/swelling at site. Pressure dressing applied. Patient maintains SpO2 saturation greater than 95% on room air. Administered Medications: 11:43 Drug: Aspirin Chewable Tablet 324 mg Route: PO; jl7 16:36 Follow up: Response: No adverse reaction kr3 Medication: 16:35 VIS not applicable for this client. kr3 Outcome: 16:21 Discharge ordered by MD. ms3 16:33 Patient left the ED. kr3 16:35 Discharged to home ambulatory. kr3 16:35 Condition: stable 16:35 Discharge instructions given to patient, Instructed on discharge instructions, follow up and referral plans. Demonstrated understanding of instructions, follow-up care. Signatures: Dispatcher [employer] Nikkie Crowe rg4 Luis Gonzalez RN RN jl7 Sandoval Day DO DO ms3 Geri Mejia RN RN kr3 Marilee Malik 6 Corrections: (The following items were deleted from the chart) 11:11 11:09 PMHx: Hypertensive disorder; tang jlKenya
--- NOTE | 2022-09-01 16:22 | EDPHYS ---
Physician Documentation [facility] Name: Bety Zepeda Age: 61 yrs Sex: Female : 1960 Arrival Date: 09/01/2022 Time: 10:51 Bed 7 Private MD: ED Physician Sandoval Day HPI: 09/01 11:12 This 61 yrs old Female presents to ER via Ambulatory with complaints of Chest ms3 Pain, Shortness Of Breath. 11:12 61-year-old female with past medical history of hypertension hypercholesterolemia, GERD ms3 presents for left-sided chest pain that began at 4 AM. Patient describes the pain as stabbing and rates the pain an 8/10. Patient denies alleviating or inciting factors. Patient denies nausea, vomiting, diaphoresis. Patient states she does develop shortness of breath with the pain.. Historical: - Allergies: 11:09 No Known Allergies; jl7 - Home Meds: 11:09 lisinopril 20 mg Oral tab 1 tab once daily [Active]; atorvastatin 40 mg oral tab 1 tab jl7 once daily [Active]; Pepcid 20 mg Oral tab [Active]; - PMHx: 11:09 Hypertension; Hypercholesterolemia; GERD; jl7 - PSHx: 11:09 Cholecystectomy; jl7 - Immunization history:: Client reports having NOT received the Covid vaccine. - Social history:: Smoking status: Patient denies any tobacco usage or history of. ROS: 11:12 Constitutional: Negative for fever, and chills. Neck: Negative for injury, pain, and ms3 swelling. 11:12 MS/Extremity: Negative for injury and deformity. 11:12 Cardiovascular: Positive for chest pain. 11:12 Respiratory: Positive for shortness of breath. 11:12 All other systems are negative. Exam: 11:12 Constitutional: This is a well developed, well nourished patient who is awake, alert, ms3 and in no acute distress. Head/Face: Normocephalic, atraumatic. Neck: Trachea midline, no cervical lymphadenopathy. Supple, full range of motion without nuchal rigidity, or vertebral point tenderness. No Meningismus. Chest/axilla: Normal chest wall appearance and motion. Nontender with no deformity. Cardiovascular: Regular rate and rhythm with a normal S1 and S2. No gallops, murmurs, or rubs. Normal PMI, no JVD. No pulse deficits. Respiratory: Lungs have equal breath sounds bilaterally, clear to auscultation and percussion. No rales, rhonchi or wheezes noted. No increased work of breathing, no retractions or nasal flaring. Abdomen/GI: Soft, non-tender, with normal bowel sounds. No distension or tympany. No guarding or rebound. No evidence of tenderness throughout. Skin: Warm, dry with normal turgor. Normal color with no rashes, no lesions, and no evidence of cellulitis. MS/ Extremity: Pulses equal, no cyanosis. Neurovascular intact. Full, normal range of motion. 11:25 ECG was reviewed by the Attending Physician. ms3 Vital Signs: 11:03 BP 154 / 99; Pulse 98; Resp 20; Temp 98.4; Pulse Ox 100% ; Weight 86.18 kg; Height 5 jl7 ft. 0 in. (152.40 cm); Pain 8/10; 12:34 BP 143 / 104; Pulse 84; Resp 17; Pulse Ox 98% on R/A; kr3 13:24 BP 164 / 101; Pulse 81; Resp 17; Pulse Ox 99% on R/A; kr3 14:45 BP 158 / 110; Pulse 79; Resp 17; Pulse Ox 98% on R/A; kr3 16:34 BP 160 / 107; Pulse 80; Resp 17; Pulse Ox 100% on R/A; kr3 11:03 Body Mass Index 37.11 (86.18 kg, 152.40 cm) jl7 MDM: 11:12 Differential diagnosis: abnormal EKG, acute myocardial infarction, coronary artery ms3 disease chest wall pain, congestive heart failure. 11:14 Patient medically screened. ms3 15:42 Discussion of test interpretation with radiology: I had a discussion with radiology ms3 regarding a test interpretation. Discussed CTA Chest PE with Dr Schwartz. He states that this is not acute and needs to follow up outpatient with vascular surgery.. 16:17 Data reviewed: vital signs, nurses notes, lab test result(s), EKG, and as a result, I ms3 will discharge patient. Consideration of Admission/Observation Escalation of care including admission/observation considered. No emergent medical condition necessitating admission found at this time. Management of patient was discussed with the following: [facility] Supervisor: Dr Janice Bledsoe MD. She will see patient in clinic. Patient is to call her nurse Lacie Parra at [phone]. Independent interpretation of the following test(s) in the Emergency Department EKG: See my EKG interpretation above radiation monitor: rate is 76 beats/min, Rhythm is normal sinus rhythm, regular, with no ectopy, Interpretation: normal rate, normal rhythm. Care significantly affected by the following Social Determinants of Health: Poor access to healthcare and/or lack of insurance. Counseling: I had a detailed discussion with the patient and/or guardian regarding: the historical points, exam findings, and any diagnostic results supporting the discharge/admit diagnosis, lab results, radiology results, the need for outpatient follow up, to return to the emergency department if symptoms worsen or persist or if there are any questions or concerns that arise at home. ED course: Discussed CTA showing intimal flap with patient. Patient to follow-up with Dr. Tirado in 2 to 3 days. Patient understands and agrees with plan. All questions were answered. Return precautions discussed include worsening symptoms, shortness of breath, diaphoresis, nausea, vomiting, or any other concerns. On reevaluation patient is alert and oriented x4, in no apparent distress, nontoxic, ambulatory in emergency department, speaking full sentences.. 09/01 11:01 Order name: Basic Metabolic Panel; Complete Time: 12:14 ms3 09/01 11:01 Order name: CBC with Diff; Complete Time: 12:14 ms3 09/01 11:01 Order name: D-Dimer; Complete Time: 12:36 ms3 09/01 11:01 Order name: Magnesium; Complete Time: 12:14 ms3 09/01 11:01 Order name: NT PRO-BNP; Complete Time: 12:14 ms3 09/01 11:01 Order name: Troponin HS; Complete Time: 12:14 ms3 09/01 11:01 Order name: XRAY Chest (1 view); Complete Time: 15:38 ms3 09/01 11:01 Order name: EKG; Complete Time: 11:02 ms3 09/01 11:01 Order name: Cardiac monitoring; Complete Time: 11:27 ms3 09/01 11:01 Order name: EKG - Nurse/Tech; Complete Time: 11: ms3 09/01 11:01 Order name: IV Saline Lock; Complete Time: 11:27 ms3 09/01 11:01 Order name: Labs collected and sent; Complete Time: 11:27 ms3 09/01 12:37 Order name: CT Chest For PE Angio; Complete Time: 15:38 ms3 09/01 11:01 Order name: O2 Per Protocol; Complete Time: 11:36 ms3 09/01 11:01 Order name: O2 Sat Monitoring; Complete Time: 11:36 ms3 EC: Rate is 99 beats/min. Rhythm is regular. QRS [place] is Normal. SC interval is normal. QRS ms3 interval is normal. Clinical impression: NSR w/ Non-specific ST/T Changes. Interpreted by me. Reviewed by me. Administered Medications: 11:43 Drug: Aspirin Chewable Tablet 324 mg Route: PO; jl7 16:36 Follow up: Response: No adverse reaction kr3 Disposition Summary: 09/01/22 16:21 Discharge Ordered Location: Home ms3 Condition: Stable ms3 Diagnosis - Chest pain, unspecified ms3 - Intimal flap descending aorta ms3 - Essential (primary) hypertension ms3 Discharge Instructions: - Discharge Summary Sheet ms3 - Nonspecific Chest Pain, Adult ms3 Forms: - Medication Reconciliation Form ms3 - Thank You Letter ms3 - Antibiotic Education ms3 - Prescription Opioid Use ms3 Signatures: Dispatcher [employer] Luis Buckner RN RN jl7 Sandoval Day DO DO ms3 Geri Mejia RN kr3 Corrections: (The following items were deleted from the chart) 11: 11:09 PMHx: Hypertensive disorder; tang jl7
[2022-09-01 17:18] VITALS: TEMP 98.4
[2022-09-01 17:21] VITALS: BP 158/110; O2SAT 98
--- NOTE | 2022-09-03 18:13 | EKG ---
Test Date: 2022-09-01 Test Time: 11:07:58 [employer]: MEASUREMENT RESULTS: Intervals: Rate: 99 WV: 170 QRSD: 88 QT: 354 QTc: 454 Dwarf: P: 24 WV: 170 QRS: 8 T: 34 INTERPRETIVE STATEMENTS: Normal sinus rhythm Nonspecific T wave abnormality Abnormal ECG Compared to ECG 10/20/2020 09:49:59 T-wave abnormality now present Left ventricular hypertrophy no longer present Electronically Signed On 09-03-22 18:11:02 [employer] OPERATOR by Cedric Novoa
== END 2022-09-01 16:33 | disposition home or self-care (01) ==
LOC: ER 10:50
DX: R07.89 Other chest pain (principal); I10 Essential (primary) hypertension
CPT/HCPCS: 36415; 71045; 71275; 80048; 83735; 83880; 84484; 85025; 85379; 93005; 99284; Q9967